=== PATIENT | female | born 1955 | race Caucasian/White ===

== ENCOUNTER 2022-08-09 09:35 | Emergency (ER) | payer MEDICARE, OTHER ==
[2022-08-09] MEDS ORDERED: Acetaminophen 500 MG Tab PO ONE (09:47)
[2022-08-09] MEDS ORDERED: Sodium Chloride 0.9% 1,000 ML IV ONE (09:56)
[2022-08-09 10:45] LABS: RESPIRATORY SYNCYTIAL VIR NAA NEGATIVE (NEGATIVE)
[2022-08-09 10:49] LABS: CORONAVIRUS COVID-19 NAA NEGATIVE (NEGATIVE)
== END 2022-08-09 11:19 | disposition home or self-care (01) ==
LOC: KA.ED 09:35
DX: J10.1 Influenza due to other identified influenza virus with other respiratory manifestations (principal); Z88.0 Allergy status to penicillin; Z20.822 Contact with and (suspected) exposure to COVID-19
CPT/HCPCS: 0241U; 85025; 96360; 99283; 99283-25; A9270-GY; J7030

== ENCOUNTER 2022-08-30 09:58 | Emergency (ER) | payer MEDICARE, OTHER ==
[2022-08-30 10:56] LABS: ANION GAP 10.6 mmol/L (5-15)
[2022-08-30] MEDS: cefTRIAXone 1 GM Vial IVPUSH ONE (11:00)
[2022-08-30 11:01] LABS: RESPIRATORY SYNCYTIAL VIR NAA POSITIVE (NEGATIVE)
[2022-08-30 11:02] LABS: CORONAVIRUS COVID-19 NAA NEGATIVE (NEGATIVE)
[2022-08-30] MEDS: Sodium Chloride 0.9% 10 ML Syringe FLUSH PRN (11:14)
== END 2022-08-30 11:40 | disposition home or self-care (01) ==
LOC: KA.ED 09:58
DX: J18.9 Pneumonia, unspecified organism (principal); B97.4 Respiratory syncytial virus as the cause of diseases classified elsewhere; Z88.0 Allergy status to penicillin; Z20.822 Contact with and (suspected) exposure to COVID-19
CPT/HCPCS: 0241U; 36415; 71046; 80053; 83605; 85025; 87040; 96374; 99283; J0696; J3490; 99284